=== PATIENT | female | born 1950 | race Caucasian/White ===

== ENCOUNTER 2017-04-11 01:15 | Emergency (ER) | payer OTHER ==
[2017-04-11] MEDS ORDERED: OXYMETAZOLINE 30 ML NASAL SPRAY EACHNARE ONE (01:20)
[2017-04-11 01:36] VITALS: TEMP 98.1
[2017-04-11] MEDS ORDERED: OXYMETAZOLINE 30 ML NASAL SPRAY ONE (01:37)
[2017-04-11] MEDS ORDERED: SILVER NITRATE APPLICATOR 1 APPL TP ONE ×2 (01:37→02:10)
[2017-04-11 02:34] VITALS: BP 167/89; PULSE 83; RESP 16; O2SAT 94
--- NOTE | 2017-04-11 02:39 | EDPHY ---
H & P Stated Complaint: NOSE BLEED OFF AND ON FOR PAST FEW DAYS. Time Seen by Provider: 04/11/17 01:35 HPI/ROS: Chief Complaint: Nosebleed HPI: 66-year-old woman presenting with nose bleeding from her left nostril intermittently for the last 2 days. This morning started bleeding profusely and has not soft. Has a history of borderline hypertension but has not been on any med medications. Also history of chronic sinus disease and does nasal rinses frequently. Does not have a history of significant epistaxis in the past. No doctor chills. No nasal trauma. No headaches. ROS: 10 point Review of Systems is negative except as noted in the HPI. Social History: [No] smoking, [no] alcohol, [ no recreational drug use] Family History: [non-contributory] Physical Exam: General: Awake, alert, no acute distress HEENT: Nose: She has scanning from her left nostril. No obvious trauma. Oropharynx is normal. Skin: No rash - Personal History Current Tetanus/Diphtheria Vaccine: Yes Current Tetanus Diphtheria and Acellular Pertussis (TDAP): Yes - Medical/Surgical History Hx Asthma: No Hx Chronic Respiratory Disease: No Hx Diabetes: No Hx Cardiac Disease: No Hx Renal Disease: No Hx Cirrhosis: No Hx Alcoholism: No Hx HIV/AIDS: No Hx Splenectomy or Spleen Trauma: No Other PMH: HTN, COLON PROBLEMS - Social History Smoking Status: Never smoked Constitutional: Initial Vital Signs Temperature (C) 36.7 C 04/11/17 01:15 Heart Rate 95 04/11/17 01:15 Respiratory Rate 18 04/11/17 01:15 Blood Pressure 203/99 H 04/11/17 01:15 O2 Sat (%) 99 04/11/17 01:15 O2 Delivery Mode Room Air Allergies/Adverse Reactions: erythromycin base Allergy (Verified 04/11/17 01:36) pineapple Allergy (Verified 04/11/17 01:36) propoxyphene [From Darvon] Allergy (Verified 04/11/17 01:36) Home Medications: Medication Instructions Recorded Polyethylene Glycol 3350 [Miralax 17 gm PO DAILY 04/11/17 17 gm (*)] Medical Decision Making Procedures: Procedure: Epistaxis control. After verbal consent was obtained, the patient was anesthetized with Bishop- Synephrine and lidocaine 1% atomized. The anterior epistaxis was identified. The patient was treated with silver nitrate cautery. Following the procedure the patient was re-examined and the bleeding was well controlled. The patient tolerated the procedure well. The procedure was performed by myself. Departure - Departure Disposition: Home, Routine, Self-Care Clinical Impression: Acute anterior epistaxis, Hypertension Condition: Good Instructions: Nosebleed (ED), Hypertension (ED) Additional Instructions: Follow up with your primary care physician in 2-3 days for blood pressure check. Follow up with [facility] for further evaluation of your nose bleeds and treatment of your chronic sinus disease. Referrals: LI MARIE [Other] - As per Instructions Laci Birmingham MD [Medical Doctor] - As per Instructions
== END 2017-04-11 02:25 | disposition home or self-care (01) ==
PROC: 3E09XTZ Introduction of Destructive Agent into Nose, External Approach (ICD-10-PCS; principal; 2017-04-11)
DX: R04.0 Epistaxis (principal); I10 Essential (primary) hypertension